=== PATIENT | male | born 1955 | race Caucasian/White ===

== ENCOUNTER 2018-08-23 00:39 | Observation (INO) | payer OTHER ==
[2018-08-23] VITALS (8 sets, daily range): BP systolic 107–115; BP diastolic 58–69
[~2018-08-23] VITALS: Ht 182.9 cm; Wt 98.5 kg
[2018-08-23] MEDS ORDERED: MORPHINE SULFATE 2 MG/ML SYR IV STA (01:07)
[2018-08-23] MEDS ORDERED: ONDANSETRON HCL INJ 2 MG/ML VIAL IV STA (01:07)
[2018-08-23] MEDS ORDERED: PANTOPRAZOLE 40 MG 10ML VIAL IV STA (01:07)
[2018-08-23] MEDS ORDERED: SODIUM CHLORIDE 0.9% 1000ML 1,000 ML IV ONE (01:15)
[2018-08-23] MEDS ORDERED: DIATRIZOATE MEGL/DIATRIZOA SOD 30 ML BTL PO ONE (01:16)
[2018-08-23 01:21] LABS: BASOPHILS # (AUTO) 0.1 (0.0-0.1); BASOPHILS % 0.4 % (0.0-1.0); EOSINOPHILS # (AUTO) 0.1 (0.0-0.4); HEMATOCRIT 50.8 % (38.2-49.6); LYMPHOCYTES # (AUTO) 1.5 (1.0-3.2); LYMPHOCYTES % 12.2 % (18.0-39.1); MEAN CORPUSCULAR HEMOGLOBIN 32.1 pg (28-32); MEAN CORPUSCULAR HGB CONC 35.4 g/dL (31-35); MEAN CORPUSCULAR VOLUME 90.7 fL (81-99); MONOCYTES # (AUTO) 0.5 (0.2-0.8); MONOCYTES % 4.5 % (4.4-11.3); NEUTROPHILS # (AUTO) 9.7 (2.1-6.9); NEUTROPHILS % 81.4 % (38.7-80.0); PLATELET COUNT 254 x10e3/uL (140-360); RED CELL DISTRIBUTION WIDTH 12.5 % (11.7-14.4)
[2018-08-23 01:25] LABS: BILIRUBIN,URINE 1+ (NEGATIVE); CLARITY,URINE CLEAR (CLEAR); COLOR,URINE YELLOW (YELLOW); KETONES,URINE 1+ (NEGATIVE); LEUKOCYTE ESTERASE ,URINE TRACE (NEGATIVE); NITRITE,URINE NEGATIVE (NEGATIVE); PROTEIN,URINE DIPSTICK 2+ (NEGATIVE); URINE UROBILINOGEN 0.2 mg/dL (0.2 - 1)
[2018-08-23 01:34] LABS: BACTERIA,URINE MANY /HPF; EPITHELIAL CELLS,URINE FEW /LPF; MUCUS,URINE MANY (RARE)
[2018-08-23] MEDS ORDERED: MORPHINE SULFATE INJ 4 MG/ML INJ ONE (01:38)
[2018-08-23 01:40] LABS: ALANINE AMINOTRANSFERASE 21 IU/L (0-55); ALBUMIN 4.5 g/dL (3.5-5.0); ALBUMIN/GLOBULIN RATIO 1.4 (0.8-2.0); ALKALINE PHOSPHATASE 51 IU/L (40-150); AMYLASE 67 U/L (25-125); ANION GAP 15.8 mmol/L (8-16); BLOOD UREA NITROGEN 8 mg/dL (7-26); BUN/CREATININE RATIO 8 (6-25); CALCIUM 9.9 mg/dL (8.4-10.2); CARBON DIOXIDE 22 mmol/L (22-29); CHLORIDE 99 mmol/L (98-107); CREATININE, SERUM 0.97 mg/dL (0.72-1.25); EST GLOMERULAR FILTRATION RATE > 60 ML/MIN (60-); GLUCOSE 130 mg/dL (74-118); LIPASE 18 U/L (8-78); POTASSIUM 3.8 mmol/L (3.5-5.1); SODIUM 133 mmol/L (136-145)
[2018-08-23] MEDS ORDERED: SODIUM CHLORIDE 0.9% 50ML 50 ML ONE (02:18)
[2018-08-23] MEDS ORDERED: IOPAMIDOL 370 MG/ML 200 ML INFUS..BTL INJ ONE (02:18)
--- NOTE | 2018-08-23 03:39 | Diagnostic Imaging Report ---
EXAM: CT ABDOMEN AND PELVIS with IV CONTRAST DATE: 08/23/2018 1:07 AM Time stamp on Exam: 0246 hours INDICATION: Abdomen pain, vomiting COMPARISON: None TECHNIQUE: The abdomen and pelvis were scanned using a multidetector helical scanner. Coronal and sagittal reformations were obtained. Dose modulation, iterative reconstruction, and/or weight based adjustment of the mA/kV was utilized to reduce the radiation dose to as low as reasonably achievable. Routine protocol performed. IV Contrast: 100 cc Isovue-370 Oral Contrast: Gastrografin FINDINGS: LOWER THORAX: No consolidations LIVER: No masses BILIARY: The gallbladder is unremarkable. No ductal dilation. SPLEEN: No masses PANCREAS: No masses ADRENALS: No nodules KIDNEYS: Symmetric perfusion. No enhancing masses. No hydronephrosis. GI TRACT: The colon is filled with liquid. Mildly distended loops of bowel with air-fluid levels. The appendix is prominent at 9 mm without focal inflammation, likely related to generalized bowel process. Sigmoid colon diverticulosis. Incidentally there is a proximal short segment jejunal-jejunal intussusception, that is likely transient. VESSELS: Mild atherosclerotic changes without aneurysm. PERITONEUM/RETROPERITONEUM: Small amount of free fluid in the right pelvis. LYMPH NODES: No lymphadenopathy REPRODUCTIVE ORGANS: Unremarkable BLADDER: Unremarkable SOFT TISSUES: Small fat-containing left inguinal hernia. BONES: No suspicious bone lesions. IMPRESSION: Findings most likely represent enterocolitis, with early small bowel obstruction in the differential. Although the appendix is prominent at 9 mm, there is no focal inflammation and this is felt to be secondary to a generalized bowel pathology. If pain worsens and becomes more focal, consider repeat CT. Sigmoid colon diverticulosis without evidence of acute diverticulitis. Incidental short segment of jejunal-jejunal proximal intussusception not resulting in obstruction. This is likely transient. Small amount of free fluid in the right lower quadrant. Signed by: Dr. Rola Simpson M.D. on 08/23/2018 3:35 AM
[2018-08-23] MEDS ORDERED: BENZOCAINE/TETRACAINE/BUTAMBEN AERO SPRAY 56 GM CAN TOP ONE (04:00)
[2018-08-23] MEDS ORDERED: MORPHINE SULFATE 2 MG/ML SYR IV PRN (04:15)
--- OUTSIDE RECORDS SUMMARY | 2018-08-23 04:26 | XMS REPORT ---
Author [facility] Address Unknown Phone Unavailable Care Team Providers Care [facility] [place] Net Name Role Phone Kiersten COATS Unavailable Unavailable Problems This patient has no known problems. Allergies, Adverse Reactions, Alerts This patient has no known allergies or adverse reactions. Medications This patient has no known medications. Results Test Description Test Time Test Comments Text Results Atomic Results Result Comments CT ABDOMEN/PELVIS W 2018-08-23 03:21:00 [place] [id number] Patient Name: CRISTINA JANE MR #: [id number] : 1955 Age/Sex: 63/M Req #: [id number] Adm Physician: Ordered by: ANDRES COATS MD Report #: [id number] Location: ER Room/Bed: Procedure: [id number] CT/CT ABDOMEN/PELVIS W Exam Date: 08/23/18 Exam Time: 0242 REPORT STATUS: Signed EXAM: CT ABDOMEN AND PELVIS with IV CONTRAST DATE: 08/23/2018 1:07 AM Time stamp on Exam: 0246 hours INDICATION: Abdomen pain, vomiting COMPARISON: None TECHNIQUE: The abdomen and pelvis were scanned using a multidetector helical scanner. Coronal and sagittal reformations were obtained. Dose modulation, iterative reconstruction, and/or weight based adjustment of the mA/kV was utilized to reduce the radiation dose to as low as reasonably achievable. Routine protocol performed. IV Contrast: 100 cc Isovue-370 Oral Contrast: Gastrografin FINDINGS: LOWER THORAX: No consolidations LIVER: No masses BILIARY: The gallbladder is unremarkable. No ductal dilation. SPLEEN: No masses PANCREAS: No masses ADRENALS: No nodules KIDNEYS: Symmetric perfusion. No enhancing masses. No hydronephrosis. GI TRACT: The colon is filled with liquid. Mildly distended loops of bowel with air-fluid levels. The appendix is prominent at 9 mm without focal inflammation, likely related to generalized bowel process. Sigmoid colon diverticulosis. Incidentally there is a proximal short segment jejunal-jejunal intussusception, that is likely transient. VESSELS: Mild atherosclerotic changes without aneurysm. PERITONEUM/RETROPERITONEUM: Small amount of free fluid in the right pelvis. LYMPH NODES: No lymphadenopathy REPRODUCTIVE ORGANS: Unremarkable BLADDER: Unremarkable SOFT TISSUES: Sm all fat-containing left inguinal hernia. BONES: No suspicious bone lesions. IMPRESSION: Findings most likely represent enterocolitis, with early small bowel obstruction in the differential. Although the appendix is prominent at 9 mm, there is no focal inflammation and this is felt to be secondary to a generalized bowel pathology. If pain worsens and becomes more focal, consider repeat CT. Sigmoid colon diverticulosis without evidence of acute diverticulitis. Incidental short segment of jejunal-jejunal proximal intussusception not resulting in obstruction. This is likely transient. Small amount of free fluid in the right lower quadrant. Signed by: Dr. Zi Mina M.D. on 08/23/2018 3:35 AM Dictated By: ZI MINA MD 4 Transcribed By: MALINI on 08/23/18334 COPY TO: ANDRES COATS MD
[2018-08-23] MEDS: SODIUM CHLORIDE 0.9% 1000ML 1,000 ML IV SCH ×3 (04:28→20:54)
[2018-08-23] MEDS: PIPER-TAZ 3.375 GM / NS 50ML IV SCH ×4 (04:28→21:09)
--- NOTE | 2018-08-23 04:40 | NUR ---
REPORT RECEIVED FROM [facility] RO[facility] NURSE.
--- NOTE | 2018-08-23 04:45 | NUR ---
RECEIVED FROM EMERGENCY ROOM PER STRETCHER. PATIENT IS ALERT AND ORIENTED. IV TO LEFT ARM WITH ON GOING FLUIDS OF NORMAL SALINE AT 125ML/HR. ASSISTED TO BED. ASSESSMENT DONE
--- NOTE | 2018-08-23 07:24 | History and Physical ---
The patient is a 63-year-old gentleman who comes in with abdominal pain. HISTORY OF PRESENT ILLNESS: This is Mr. Sd Marcos, a 63-year-old gentleman with a history of abdominal pain. The patient's abdominal pain started about a day before admission. The patient had pain of intensity of 8/10 and radiating to the lower rectal area. The patient's pain had no relieving factors nor exacerbating factors. The patient about a week ago had an upper respiratory tract infection and had gone to the [facility] and obtained some amoxicillin. No other significant history. PAST MEDICAL HISTORY: Noncontributory and not significant. No hypertension. No hyperlipidemia. No diabetes mentioned by the patient. SURGICAL HISTORY: History of tonsillectomy when he was 7 years old. SOCIAL HISTORY: Positive for smoking. Positive for EtOH. No IV drug abuse. REVIEW OF SYSTEMS: Negative for chest pain or shortness of breath. Now positive for nausea. No vomiting. No diarrhea. No constipation. Abdominal pain positive. No rectal bleeding, hematochezia or hematemesis either. No diplopia. No blurry vision. No dysuria. FAMILY HISTORY: Positive for hypertension in the family. PHYSICAL EXAMINATION GENERAL: The patient is alert and oriented times 3. He is in no pain at this time. VITAL SIGNS: Temperature is 98.1, pulse is 76, respirations 18, blood pressure 132/92, pulse oximetry 97%. HEENT: Normocephalic and atraumatic. No icterus is present. CV: S1 and S2 normal, regular rate and rhythm. ABDOMEN: Tender in the periumbilical area and the right lower quadrant. No rebound. No guarding. EXTREMITIES: No clubbing, no cyanosis and no edema. LABORATORY VALUES: Initial white count 11,000; hemoglobin 18; hematocrit 50.8. Chemistries show sodium 133, potassium 3.8, BUN 8, creatinine 0.97, glucose 130, total bilirubin 1.3. Urine shows white count 11-20, RBCs 6-10, leukocyte trace. IMAGING: Chest CT shows enterocolitis. Appendix more prominent. Sigmoid diverticulitis. Short segment of jejunum with intussusception and a small amount of free fluid in the right lower quadrant. ASSESSMENT AND PLAN: Possible appendicitis. Possible small-bowel obstruction. The patient is on fluids. IV Zosyn has been started at 3.375. The patient's glucose is running high. We will obtain hemoglobin A1c. The patient will be kept n.p.o. Dr. Joyce to assess the patient. Further recommendations per clinical course. The patient will probably need an appendectomy and possible discharge after that. The patient does have good bowel sounds and good bowel movement in the morning, so we will avoid an NG tube at this time. Job#: [id number] LILLIAN
--- NOTE | 2018-08-23 07:30 | NUR ---
PATIENT DENIES ABDOMINAL PAIN BUT C/O SLIGHT TENDERNESS TO THE ABDOMEN ON PALPATION. SKIN INTEGRITY, CALL LIGHT WITHIN EASY REACH, PATIENT INSTRUCTED TO CALL FOR ASSISTANCE NEEDED.
--- NOTE | 2018-08-23 07:48 | Consultation ---
DATE OF CONSULTATION: August 23, 2018 Patient is a 63-year-old male who presents with complaints of abdominal pain. Patient says the pain started 2 days ago with severe crampy pain and he had associated nausea and vomiting one time. Says the pain is less now. He also started to have diarrhea now. He has not noticed any fever. He came to the emergency room where CT scan of the abdomen was done, which revealed findings of thickening of the bowel suggestive of enterocolitis. There was a short segmental jejunal intussusception. The appendix was prominent and 9 mm without inflammation. PAST MEDICAL HISTORY: Is otherwise unremarkable. He denies chronic medical problems. CURRENT MEDICATIONS: No current medications. ALLERGIES: NO KNOWN ALLERGIES. PAST SURGICAL HISTORY: Only previous surgery was a tonsillectomy. FAMILY HISTORY: Noncontributory. SOCIAL HISTORY: The patient smokes cigarettes about 3/4-pack per day. Occasionally drinks alcohol of 1-2 beers a day. REVIEW OF SYSTEMS: Is as stated above. Otherwise, is negative. PHYSICAL EXAMINATION GENERAL: The patient is awake, alert and in no distress. VITAL SIGNS: Normal. He is afebrile. He is not tachycardic. HEENT: Unremarkable. Sclerae is nonicteric. NECK: Supple without masses. LUNGS: Equal breath sounds are clear bilaterally. CARDIAC: Regular rate and rhythm. No murmurs. ABDOMEN: Soft. There is mild diffuse tenderness greatest in the lower abdomen with no signs of peritonitis. No mass. No organomegaly. EXTREMITIES: No edema. Peripheral pulses are palpable. NEUROLOGIC: Intact. LAB TESTS: White blood cell count is 11.9, hemoglobin 18, hematocrit 50.8. Chemistries are essentially normal. ASSESSMENT: A 63-year-old male with findings most suggestive of enterocolitis, which seems to be running its course. Although the appendix is prominent, there are no clinical signs that suggest appendicitis. No signs of peritonitis. At this point, I think the patient can start on a liquid diet and continue nonoperative therapy as has been ordered. Thank you for asking me to see Mr. Marcos. Job#: [id number] [place]
--- NOTE | 2018-08-23 11:54 | NUR ---
PATIENT CONDITION STABLE WITHOUT RESPIRATORY DISTRESS, HE DENIES ABDOMINAL PAIN. CALL LIGHT IN EASY, EDUCATED TO AMBULATED IN THE [facility].
[2018-08-23] MEDS: MORPHINE SULFATE INJ 4 MG/ML INJ IV PRN ×2 (13:31→21:03)
[2018-08-23] MEDS: ONDANSETRON HCL INJ 2 MG/ML VIAL IV PRN ×2 (13:32→21:03)
--- NOTE | 2018-08-23 13:33 | NUR ---
PATIENT C/O PAIN TO THE ABDOMEN WITH PAIN SCORE #6, MEDICATED WITH MORPHINE AND ZOFRAN ORDERED. CALL LIGHT WITHIN EASY REACH, INSTRUCTED TO CALL FOR ASSISTANCE UPON GETTING OUT OF THE BED DUE TO SIDE EFFECT FROM THE MEDICATION.
--- NOTE | 2018-08-23 16:58 | NUR ---
PATIENT RESTING QUIETLY IN BED, HE DENIES ABDOMINAL PAIN. FAMILY MEMBERS VISITING WITH THE PATIENT AT THIS TIME.
--- NOTE | 2018-08-23 19:08 | NUR ---
WALKING ROUNDS PERFORMED, RECEIVED PT LAYING SEMI FOWLERS IN BED, AAOX3, RR EVEN AND NON-LABORED, ON RA. NO S/SX OF DISTRESS NOTED. LEFT PT LAYING SEMI FOWLERS IN BED, BED IN LOW LOCKED POSITION, SIDE RAILS UPX2, CALL LIGHT AND PHONE WITHIN REACH.
[2018-08-24] VITALS: BP 104/59
[2018-08-24 04:00] VITALS: BP 112/57
[2018-08-24] MEDS: SODIUM CHLORIDE 0.9% 1000ML 1,000 ML IV SCH (04:04)
[2018-08-24] MEDS: PIPER-TAZ 3.375 GM / NS 50ML IV SCH (05:37)
--- NOTE | 2018-08-24 06:00 | NUR ---
IVF DISCONTINUED. PT SALINE LOCKED AT THIS TIME.
[2018-08-24 06:15] LABS: BASOPHILS % 0.5 % (0.0-1.0); EOSINOPHILS # (AUTO) 0.3 (0.0-0.4); EOSINOPHILS % 3.4 % (0.0-6.0); HEMATOCRIT 44.5 % (38.2-49.6); LYMPHOCYTES # (AUTO) 1.7 (1.0-3.2); LYMPHOCYTES % 20.5 % (18.0-39.1); MEAN CORPUSCULAR HEMOGLOBIN 32.1 pg (28-32); MEAN CORPUSCULAR HGB CONC 33.7 g/dL (31-35); MEAN CORPUSCULAR VOLUME 95.1 fL (81-99); MONOCYTES # (AUTO) 0.5 (0.2-0.8); MONOCYTES % 5.8 % (4.4-11.3); NEUTROPHILS # (AUTO) 5.6 (2.1-6.9); NEUTROPHILS % 69.4 % (38.7-80.0); PLATELET COUNT 196 x10e3/uL (140-360); RED BLOOD COUNT 4.68 x10e6/uL (4.3-5.7)
[2018-08-24 06:41] LABS: ALANINE AMINOTRANSFERASE 11 IU/L (0-55); ALBUMIN 3.1 g/dL (3.5-5.0); ALBUMIN/GLOBULIN RATIO 1.2 (0.8-2.0); ALKALINE PHOSPHATASE 36 IU/L (40-150); ANION GAP 11.1 mmol/L (8-16); BLOOD UREA NITROGEN 8 mg/dL (7-26); BUN/CREATININE RATIO 8 (6-25); CALCIUM 7.7 mg/dL (8.4-10.2); CARBON DIOXIDE 23 mmol/L (22-29); CHLORIDE 107 mmol/L (98-107); CREATININE, SERUM 0.96 mg/dL (0.72-1.25); EST GLOMERULAR FILTRATION RATE > 60 ML/MIN (60-); GLUCOSE 82 mg/dL (74-118); POTASSIUM 4.1 mmol/L (3.5-5.1); SODIUM 137 mmol/L (136-145)
--- NOTE | 2018-08-24 06:45 | Progress Note ---
DATE: Patient is here for abdominal pain, enterocolitis and also possible intussusception. The patient has had multiple diarrheal movements. No complaints today. There is slight abdominal pain, but decreased from intensity from the time he came in. Currently, on morphine, Zosyn and fluids. Tolerating a clear liquid diet. No complaints today. OBJECTIVE VITAL SIGNS: Temperature is 97.2, afebrile for the last 48 hours, pulse is 61, respirations of 18, blood pressure is 104/59, pulse oximetry 93% on room air. HEENT: Normocephalic and atraumatic. Pupils are reactive to light and accommodation. CV: S1 and S2. Regular rate and rhythm. ABDOMEN: Positive for good bowel sounds. Nontender and nondistended. EXTREMITIES: No clubbing. No cyanosis. No edema. LABORATORY VALUES: White count is 8.5 down from 11,000, hemoglobin is 15, hematocrit of 44.5. Chemistries are pending today. Imaging studies from yesterday with pancolitis with possible intussusception, small-bowel obstruction and/or appendicitis. Surgery decided not to do any surgical intervention. Will advance his diet to a full liquid diet. Continue with the antibiotics and possible discharge tomorrow morning. Further recommendations per clinical course. Will continue to monitor the patient. Follow up his electrolytes in the morning and white count in the morning. Job#: [id number] NIGEL
--- NOTE | 2018-08-24 07:26 | NUR ---
Rcvd patient in report this am. Patient is asleep in bed at this time. No s/s of distress noted
[2018-08-24 08:36] VITALS: BP 114/63
[2018-08-24 10:19] VITALS: BP 114/63
[2018-08-24 12:33] VITALS: BP 115/68
[2018-08-24] MEDS ORDERED: CIPRO500 MG PO (13:12)
[2018-08-24] MEDS ORDERED: FLAGYL250 MG PO (13:13)
--- NOTE | 2018-08-24 13:41 | NUR ---
Patient tolerated his regular diet for lunch. Spoke with Dr. Christopher and Dr. Joyce and patient clear to discharge.
--- NOTE | 2018-08-24 13:42 | NUR ---
Removed IV from left AC. Pressure dressing applied
--- NOTE | 2018-08-24 13:46 | NUR ---
Patient discharged from facility to home. Patient assisted out via staff. Patient refused wheelchair assistance. Reviewed all discharge paperwork, follow up appts, and RX's called into [facility] pharmacy per Dr. Christopher.
== END 2018-08-24 13:46 | disposition home or self-care (01) ==
LOC: ER 00:39 → ERHOLD 04:23 → MED/SURG 05:17
PROVIDERS: ADMIT Family Medicine; ATTEND Family Medicine
DX: K51.012 Ulcerative (chronic) pancolitis with intestinal obstruction (principal)
CPT/HCPCS: 36415 ×2; 74177; 80053 ×2; 81001; 82150; 83690; 85025 ×2; 96361; 96367; 96374; 96375; 96376; 99284; G0378 ×2; J2270; J2405; J2543 ×2; J7030; Q9967